=== PATIENT | male | born 1965 | race Caucasian/White ===

== ENCOUNTER 2018-12-04 08:21 | Outpatient (CLI) | payer BC ==
--- NOTE | 2018-12-04 10:22 | ULT ---
GALLBLADDER ULTRASOUND: Date: 12/04/18 HISTORY: Elevated liver function tests. FINDINGS: Real-time imaging of the right upper quadrant shows a normal appearing gallbladder. Technologist desc ribes a negative ultrasound Hammer's sign. The common duct is 3.0 mm. Visualized liver parenchyma is felt to be within normal limits, measures approximately 13-14 cm in length. Questionable slight incre ased echogenicity to the liver may indicate some fatty change. Right kidney is normal in size and not obstructed. Pancreas region appears unremarkable. IMPRESSION: Slight increased echogenicity to the liver, possibly related to some mild fatty change. POS: [facility]
== END 2018-12-04 08:22 | disposition home or self-care (01) ==
LOC: BICULT 08:21
PROVIDERS: ATTEND Internal Medicine
DX: R74.0 Nonspecific elevation of levels of transaminase and lactic acid dehydrogenase [LDH] (principal)
CPT/HCPCS: 76705

== ENCOUNTER 2020-10-27 11:09 | Outpatient (CLI) | payer BC ==
--- NOTE | 2020-10-27 11:30 | RAD ---
EXAM: Two views chest PROVIDED CLINICAL HISTORY: Dyspnea. History of Covid 19 diagnosis 6 weeks ago. Persistent cough and dyspnea on exertion. COMPARISON: 12/25/2015 FINDINGS: Cardiac silhouette and pulmonary vasculature are within normal limits. The lungs are clear. No conso lidation or pleural fluid is seen. Chest is stable when compared to prior exam. IMPRESSION: Stable chest without evidence of an acute cardiopulmonary process..
== END 2020-10-27 11:10 | disposition home or self-care (01) ==
LOC: BICRAD 11:09
PROVIDERS: ATTEND Internal Medicine
DX: R06.00 Dyspnea, unspecified (principal)
CPT/HCPCS: 71046

== ENCOUNTER 2020-10-27 12:56 | Outpatient (CLI) | payer BC ==
--- NOTE | 2020-10-27 14:02 | CT ---
EXAM: CT pulmonary angiogram with IV contrast and 3-D MIP reconstructions PROVIDED CLINICAL HISTORY: DYSPNEA ON EXERTION COMPARISON: 01/05/2016 FINDINGS: There is no evidence for central or segmental pulmonary embolus. There is a 5 mm noncalcified, solid appearing right upper lobe pulmonary nodule, appearing slightly l arger than on chest CT of 01/05/2016. The lungs appear otherwise free of significant opacity. No pleural fluid or pneumothorax apparent. No evidence for thoracic lymph node enlargement. The airway appears patent and of normal caliber. The visualized portions of the upper abdomen demonstrate no acute findings. The osseous structures demonstrate no concerning lytic or blastic lesions. IMPRESSION: 1. No evidence for central or segmental pulmonary embolus. 2. 5 mm right upper lobe pulmonary nodule, slightly larger than on prior. Follow-up chest CT in 6 mon ths is recommended. Code LUNG NODULE
[2020-10-27] MEDS ORDERED: Iopamidol 370 76% 100 ML VIAL ONE (14:59)
== END 2020-10-27 12:57 | disposition home or self-care (01) ==
LOC: CT 12:56
PROVIDERS: ATTEND Internal Medicine
DX: R06.00 Dyspnea, unspecified (principal); R79.1 Abnormal coagulation profile; R91.1 Solitary pulmonary nodule
CPT/HCPCS: 71275; Q9967

== ENCOUNTER 2021-01-30 08:24 | Outpatient (CLI) | payer BC | END 2021-01-30 08:25 | disposition home or self-care (01) | LOC: BICULT 08:24 | PROVIDERS: ATTEND Internal Medicine | DX: R74.01 Elevation of levels of liver transaminase levels (principal); K76.0 Fatty (change of) liver, not elsewhere classified | CPT/HCPCS: 76705 ==

== ENCOUNTER 2021-07-06 10:25 | Outpatient (CLI) | payer BC ==
[2021-07-06 12:03] LABS: Bilirubin Neg (Negative); Blood, Urine Negative (Negative); Clarity Clear (Clear); Glucose, Urine (Dipstick) Normal (Negative); Ketone, Urine Negative (Negative); Leukocyte 25 (Negative); Nitrite Negative (Negative); Protein, Urine (Dipstick) Negative (Neg-Trace); Specific Gravity, Urine 1.005 (1.002-1.036); Urobilinogen Normal mg/dL (Less than 2)
[2021-07-06 12:30] LABS: Hemoglobin 15.2 g/dL (13.5-17.5); Mean Corpuscular HGB CONC 33.9 g/dL (32.0-36.0); Mean Corpuscular Hemoglobin 31.1 pg (27.0-33.0); Mean Platelet Volume 10.4 fl (7.4-10.4); Platelet Count 329 10x3/uL (150-450); RBC Distribution Width 12.6 % (11.5-14.5); Red Blood Cell (RBC) Count 4.88 10x6/uL (4.32-5.72)
[2021-07-06 12:32] LABS: Bacteria/HPF None Seen HPF (None Seen); RBC/HPF None Seen HPF (0-3); Squamous Epithelial 0-3 HPF (0-3); WBC/HPF 0-3 HPF (0-3)
[2021-07-06 12:36] LABS: Anion Gap 15 mmol/L (10-20); BUN (Urea Nitrogen) 12 mg/dL (8.4-25.7); Calc. Creatinine Clearance 0 mL/min (70-130); Calcium 10.8 mg/dL (7.8-10.44); Carbon Dioxide 27 mmol/L (22-29); Chloride 102 mmol/L (98-107); Glucose 95 mg/dL (70-105); Potassium 4.1 mmol/L (3.5-5.1); Sodium 140 mmol/L (136-145)
[2021-07-06 12:39] LABS: INR-International Normal Ratio 0.9; PTT 27.1 sec (22.0-33.0); Prothrombin Time 10.4 sec (9.5-12.1)
[2021-07-07 00:53] LABS: SARS-CoV-2 PCR by NAA Not Detected (NotDetected)
== END 2021-07-06 10:26 | disposition home or self-care (01) ==
LOC: LABBT 10:25
PROVIDERS: ATTEND Urology
DX: Z01.818 Encounter for other preprocedural examination (principal); Z12.11 Encounter for screening for malignant neoplasm of colon; R97.20 Elevated prostate specific antigen [PSA]; E78.5 Hyperlipidemia, unspecified; K76.0 Fatty (change of) liver, not elsewhere classified; R55 Syncope and collapse; N42.32 Atypical small acinar proliferation of prostate; R74.01 Elevation of levels of liver transaminase levels; A63.0 Anogenital (venereal) warts; R35.1 Nocturia; R91.1 Solitary pulmonary nodule; Z87.891 Personal history of nicotine dependence; Z20.822 Contact with and (suspected) exposure to COVID-19
CPT/HCPCS: 71046; 80048; 81001; 85027; 85610; 85730; 87086; 93005; 93010; U0003; U0005

== ENCOUNTER 2021-07-11 06:04 | Day surgery (SDC) | payer BC ==
[2021-07-10 11:28] VITALS: BMI 23.7
[2021-07-11] MEDS ORDERED: MEROPENEM 1 GM/50 ML 1 GM in Premix Bag 1 BAG IVPB SCH (06:30)
[2021-07-11] MEDS ORDERED: Midazolam HCl 2 mg/2 ml Vial ONE (06:55)
[2021-07-11] MEDS ORDERED: Fentanyl 100 MCG/2 ML VIAL ONE (06:55)
[2021-07-11] MEDS ORDERED: Dexamethasone 20 MG/5 ML VIAL ONE (07:30)
[2021-07-11] MEDS ORDERED: Ondansetron PF 4 MG/2 ML Vial ONE (07:30)
[2021-07-11] MEDS ORDERED: PROPOFOL 200 MG/20 ML VIAL ONE (07:30)
[2021-07-11] MEDS ORDERED: Bacitracin 1 PK ONE (07:46)
[2021-07-11] MEDS ORDERED: HYDROcodone/Acetaminophen 5/325 mg Tablet ONE (09:30)
== END 2021-07-11 09:55 | disposition home or self-care (01) ==
LOC: SDC 06:04
PROVIDERS: ATTEND Urology
PROC: 0VB03ZX Excision of Prostate, Percutaneous Approach, Diagnostic (ICD-10-PCS; principal; 2021-07-11)
PROC: 0V5SXZZ Destruction of Penis, External Approach (ICD-10-PCS; principal; 2021-07-11)
PROC: 0VBSXZZ Excision of Penis, External Approach (ICD-10-PCS; principal; 2021-07-11)
DX: N42.32 Atypical small acinar proliferation of prostate (principal); R97.20 Elevated prostate specific antigen [PSA]; N48.89 Other specified disorders of penis; A63.0 Anogenital (venereal) warts; R35.1 Nocturia; E78.5 Hyperlipidemia, unspecified; K76.0 Fatty (change of) liver, not elsewhere classified; R91.1 Solitary pulmonary nodule; R55 Syncope and collapse; Z79.82 Long term (current) use of aspirin; Z79.899 Other long term (current) drug therapy; Z88.1 Allergy status to other antibiotic agents; Z88.5 Allergy status to narcotic agent; Z88.8 Allergy status to other drugs, medicaments and biological substances
CPT/HCPCS: 88305; J1100; J2185; J2250; J2405; J2704; J3010

== ENCOUNTER 2021-08-08 08:21 | Outpatient (CLI) | payer BC | END 2021-08-08 08:22 | disposition home or self-care (01) | LOC: BICULT 08:21 | PROVIDERS: ATTEND Internal Medicine | DX: K82.4 Cholesterolosis of gallbladder (principal); K76.0 Fatty (change of) liver, not elsewhere classified | CPT/HCPCS: 76705 ==

== ENCOUNTER 2021-12-06 12:53 | Outpatient (CLI) | payer BC | END 2021-12-06 12:54 | disposition home or self-care (01) | LOC: BICCT 12:53 | PROVIDERS: ATTEND Internal Medicine | DX: R91.1 Solitary pulmonary nodule (principal) | CPT/HCPCS: 71250 ==

== ENCOUNTER 2022-02-28 08:07 | Outpatient (CLI) | payer BC | END 2022-02-28 08:08 | disposition home or self-care (01) | LOC: TBSIIMAG 08:07 | PROVIDERS: ATTEND Urology | DX: R97.20 Elevated prostate specific antigen [PSA] (principal); N42.32 Atypical small acinar proliferation of prostate; N40.1 Benign prostatic hyperplasia with lower urinary tract symptoms | CPT/HCPCS: 72197 ==

== ENCOUNTER 2022-03-12 11:39 | Outpatient (CLI) | payer BC | END 2022-03-12 11:40 | disposition home or self-care (01) | LOC: RAD 11:39 | PROVIDERS: ATTEND Nurse Practitioner Family | DX: U07.1 COVID-19 (principal) | CPT/HCPCS: 71046 ==

== ENCOUNTER 2022-03-15 09:02 | Outpatient (CLI) | payer BC | END 2022-03-15 09:03 | disposition home or self-care (01) | LOC: BICULT 09:02 | PROVIDERS: ATTEND Internal Medicine | DX: K82.4 Cholesterolosis of gallbladder (principal) | CPT/HCPCS: 76705 ==

== ENCOUNTER 2023-01-02 08:37 | Outpatient (CLI) | payer BC | END 2023-01-02 08:38 | disposition home or self-care (01) | LOC: BICCT 08:37 | PROVIDERS: ATTEND Internal Medicine | DX: R91.1 Solitary pulmonary nodule (principal); Z91.89 Other specified personal risk factors, not elsewhere classified | CPT/HCPCS: 71250 ==

== ENCOUNTER 2024-05-26 09:23 | Outpatient (CLI) | payer BC | END 2024-05-26 09:24 | disposition home or self-care (01) | LOC: BICCT 09:23 | PROVIDERS: ATTEND Internal Medicine | DX: Z12.2 Encounter for screening for malignant neoplasm of respiratory organs (principal); Z87.891 Personal history of nicotine dependence | CPT/HCPCS: 71271 ==

== ENCOUNTER 2025-06-17 14:35 | Outpatient (CLI) | payer BC | END 2025-06-17 14:36 | disposition home or self-care (01) | LOC: SCSMRI 14:35 | PROVIDERS: ATTEND Urology | DX: R97.20 Elevated prostate specific antigen [PSA] (principal); N42.32 Atypical small acinar proliferation of prostate; Z98.890 Other specified postprocedural states | CPT/HCPCS: 72197 ==

== ENCOUNTER 2025-07-06 06:09 | Day surgery (SDC) | payer BC ==
[2025-06-23 11:00] VITALS: BMI 24.4
[2025-07-06] MEDS ORDERED: cefTRIAXone (ROCEPHIN) 2 GM VIAL ONE (06:58)
[2025-07-06] MEDS ORDERED: LevoFLOXacin D5W 500 mg (100 mL) BAG ONE (06:58)
[2025-07-06] MEDS ORDERED: fentaNYL PF 100 MCG/2 ML SYRINGE ONE (07:33)
[2025-07-06] MEDS ORDERED: PHENYLEPHRINE-NS 100 MCG/ML 10 ML SYRINGE ONE (07:42)
== END 2025-07-06 13:00 | disposition home or self-care (01) ==
LOC: SDC 06:09
PROVIDERS: ATTEND Urology
PROC: 0VB00ZX Excision of Prostate, Open Approach, Diagnostic (ICD-10-PCS; principal; 2025-07-06)
DX: N40.0 Benign prostatic hyperplasia without lower urinary tract symptoms (principal); R97.20 Elevated prostate specific antigen [PSA]; K76.0 Fatty (change of) liver, not elsewhere classified; Z87.891 Personal history of nicotine dependence; Z88.5 Allergy status to narcotic agent; Z88.1 Allergy status to other antibiotic agents; Z88.8 Allergy status to other drugs, medicaments and biological substances
CPT/HCPCS: 76872; G0416; J0696; J1956; J2704

== ENCOUNTER 2025-07-07 13:39 | Outpatient (CLI) | payer BC | END 2025-07-07 13:40 | disposition home or self-care (01) | LOC: CT 13:39 | PROVIDERS: ATTEND Internal Medicine | DX: Z12.2 Encounter for screening for malignant neoplasm of respiratory organs (principal); Z87.891 Personal history of nicotine dependence; R41.3 Other amnesia | CPT/HCPCS: 70551; 71271 ==